=== PATIENT | male | born 2000 | race Caucasian/White ===

== ENCOUNTER 2024-08-08 10:27 | Inpatient (IN) ==
--- NOTE | 2024-08-08 10:51 | Emergency Department Note ---
Impression & Plan Suicidal thoughts Handoff ED Provider Note HPI: History obtained from patient. The patient is a 23-year-old gentleman with history of bipolar disorder, currently not taking any medications, who presents the emergency department with a chief complaint of polysubstance abuse, alcohol intoxication. Patient reportedly was making some vague suicidal threats over the phone to his sister who contacted crisis and the patient was brought into the ED via police. On my assessment here to the ED the patient is alert, he appears intoxicated but otherwise he is cooperative. Patient states he is "unstable" but denies any active plan to kill himself. Patient response to my questions appropriately and does not appear to be actively responding to any internal stimuli on my initial evaluation. He denies any hallucinations. ROS: - Per HPI Differential Diagnosis: Bipolar disorder, polysubstance abuse, alcohol intoxication, depression, suicidal thoughts, amongst other potential pathologies. *Outpatient medications and allergy history reviewed. PE: General: Alert, disheveled appearing, no acute distress HEENT: Normocephalic, trachea midline Eyes: Extraocular eye movement is intact, no scleral erythema Pulmonary: Clear to auscultation bilaterally, no wheezing Cardio: Regular rate and rhythm GI: Abdomen is soft to palpation : No suprapubic tenderness MSK: No evidence of trauma or malformation of the extremities, no edema Skin: Superficial laceration to the thumb, no active bleeding Neuro: Alert, no focal deficits Psychiatric: Cooperative Medical Decision Making: Lab work was obtained, patient was held here in the ED for observation. Lab work shows no leukocytosis, hemoglobin is normal, platelet count is normal, CMP does not show any evidence of any critical findings. Alcohol level did return markedly elevated at 353. Urine drug screen is otherwise negative. COVID screening test is negative. On my reassessment at 6 PM, the patient appears more clinically sober, it will be several hours before he is medically cleared given his elevated alcohol level. He is agreeable for 201 admission for polysubstance abuse with underlying mental health disorder and thoughts of self-harm although he denies an active plan to kill himself. Patient was signed out to my colleague, Dr. Molina, pending reevaluation for sobriety and ultimate disposition. I anticipate voluntary admission under 201, there are no clear grounds for 302 at this point. Patient again stated his preference for voluntary admission on my reevaluation, he does not appear to be going through active alcohol withdrawal but states he does drink daily therefore he will be maintained on a alcohol withdrawal precautions. Patient sinus my colleague, Dr. Molina, in stable condition pending reevaluation and ultimate disposition. Consultants/Discussions held with other healthcare providers: -Case management, Belia Red Disposition discussion held by myself with: -Patient Diagnosis: 1. Alcohol intoxication, acute 2. Bipolar disorder, nonmedicated 3. Suicidal thoughts/threats Disposition: Handoff Joss Knutson DO Emergency Medicine Past Med/Surg History Problem List (Updated 08/08/24 @ 18:07 by Joss Knutson DO) Suicidal thoughts (Acute) Cyst of brain Abdominal pain (Acute) Constipation (Acute) Dehydration (Acute) Nausea & vomiting (Acute) Medical History Cyst of brain Social History Smoking Status: Current every day smoker Tobacco Type: Cigarettes Preferred Language: Setswana Feels Safe at Home: Yes Allergies Allergies Allergy/AdvReac Type Severity Reaction Status Date / Time oak Allergy Severe Hives Unverified 10/07/22 19:16 Home Meds Home Medications Medication Instructions Recorded Confirmed No Known Home Medications 11/02/19 08/08/24 Results & Data (ED) Vital Signs Vital Signs - 24 hr 08/08/24 10:40 08/08/24 10:40 08/08/24 14:55 Temperature 36.8 C 36.8 C 36.2 C L Temperature Source Oral Oral Oral Pulse Rate 72 Pulse Rate [Left Finger] 72 89 Pulse Rhythm Regular Pulse Rhythm [Left Finger] Regular Regular Pulse Strength Normal Pulse Strength [Left Finger] Normal Normal Respiratory Rate 20 20 18 Respiratory Effort / Characteristics Non-Labored Spontaneous Non-Labored Spontaneous Non-Labored Spontaneous Respiratory Depth Normal Normal Normal Respiratory Pattern Regular Regular Regular Blood Pressure 151/91 H Blood Pressure [Left Arm] 151/91 H 112/62 Blood Pressure Mean 111 Blood Pressure Mean [Left Arm] 111 78 Blood Pressure Position Lying Blood Pressure Position [Left Arm] Lying Lying Pulse Oximetry 98 98 96 Oxygen Delivery Method Room Air Room Air Room Air Sepsis Recent Fever Within 48 Hours No Sepsis New/Unexplained Change in Mental Status No Sepsis Action Taken by Nursing No Action Required Laboratory Data 08/08/24 10:32 08/08/24 10:32 Lab Results 08/08/24 08/08/24 Range/Units 10:32 10:37 WBC 7.57 (4.8-10.8) K/ul RBC 5.42 (4.70-6.10) M/uL Hgb 17.6 (14.0-18.0) g/dl Hct 49.6 (42.0-52.0) % MCV 91.5 (80.0-100.0) fL MCH 32.5 (25.0-34.0) pg MCHC 35.5 (32.0-36.0) g/dL RDW Std Deviation 39.4 (36.4-46.3) fL RDW Coeff of Kevin 11.7 (11.5-14.5) % Plt Count 193 (130-400) K/uL MPV 8.8 L (9.4-12.4) fL Immature Gran % (Auto) 0.3 % Neut % (Auto) 59.8 % Lymph % (Auto) 28.8 % Coffey % (Auto) 8.5 % Eos % (Auto) 1.5 % Baso % (Auto) 1.1 % Neut # (Auto) 4.54 (1.40-6.50) K/uL Lymph # (Auto) 2.18 (1.20-3.40) K/uL Coffey # (Auto) 0.64 H (0.11-0.59) K/uL Eos # (Auto) 0.11 (0.00-0.50) K/uL Baso # (Auto) 0.08 (0.00-0.20) K/uL Immature Gran # (Auto) 0.02 (0.01-0.20) K/uL Sodium 141 (136-145) mmol/L Potassium 3.8 (3.5-5.1) mmol/L Chloride 102 (98-107) mmol/L Carbon Dioxide 24 (21-32) mmol/L Anion Gap 15 H (3-11) BUN 10 (6-23) mg/dl Creatinine 1.01 (0.6-1.4) mg/dl Est Cr Clr Drug Dosing 122.2 ml/min eGFR 107.84 BUN/Creatinine Ratio 9.9 L (10-20) Glucose 97 (70-99(Fasting)) mg/dl Calcium 9.7 (8.6-10.3) mg/dl Total Bilirubin 0.6 (0.2-1.0) mg/dl AST 44 H (13-39) U/L ALT 32 (7-52) U/L Alkaline Phosphatase 64 (34-104) U/L Total Protein 7.9 (6.0-8.3) gm/dl Albumin 5.3 H (3.4-5.0) gm/dl Globulin 2.6 (2.5-4.0) gm/dl Albumin/Globulin Ratio 2.0 (0.9-2) TSH 3.849 (0.300-4.500) uIu/ml Urine Color Yellow Urine Appearance Clear (Clear) Urine pH 5.5 (4.5-7.5) Ur Specific [place] 1.005 (1.000-1.030) Urine Protein Negative (Negative) Urine Glucose (UA) Negative (Negative) Urine Ketones Negative (Negative) Urine Blood Negative (Negative) Urine Nitrite Negative (Negative) Urine Bilirubin Negative (Negative) Urine Urobilinogen Negative (Negative) Ur Leukocyte Esterase Negative (Negative) Salicylates < 3.0 L (3.0-30) mg/dl Urine Opiates Screen Neg (Neg) Ur Methadone, Qual Neg (Neg) Urine Fentanyl Screen Neg (Neg) Acetaminophen < 3 L (10-30) ug/ml Urine Barbiturates Neg (Neg) Ur Phencyclidine (PCP) Neg (Neg) U Amphetamin/Meth Scrn Neg (Neg) MDMA (Ecstasy) Screen Neg (Neg) U Benzodiazepines Scrn Neg (Neg) Ur Cocaine Metabolite Neg (Neg) U Marijuana (THC) Screen Neg (Neg) Ethyl Alcohol mg/dL 353.2 H (<10.0) mg/dl SARS-CoV-2, RNA, NAAT NEGATIVE (NEGATIVE) Administered Medications Nicotine (Nicotine 21 Mg/24 Hr Tdsy) 1 patch TD QAM PANKAJ Stop: 09/07/24 11:14 Last Admin: 08/08/24 11:18 Dose: 1 patch Documented By: RAINA Discharge Plan Visit Data Chief Complaint: Mental Health Evaluation Stated Complaint: [facility] ED Provider: Joss Knutson Discharge Problem: Suicidal thoughts Forms Stand Alone Forms: My [facility], Suicide Prevention Resources Prescriptions Prescriptions: No Action No Known Home Medications Referrals Referrals: PCP,NO [Primary Care Provider] -
[2024-08-08 11:06] LABS: Appearance Urine Clear (Clear); Bilirubin Urine Negative (Negative); Blood Urine Negative (Negative); Color Urine Yellow; Glucose Urine UA Negative (Negative); Ketones Urine Negative (Negative); Leukocyte Esterase Urine Negative (Negative); Nitrite Urine Negative (Negative); Protein Urine Negative (Negative); Specific Gravity Urine 1.005 (1.000-1.030); Urobilinogen Urine Negative (Negative); pH Urine 5.5 (4.5-7.5)
[2024-08-08 11:10] LABS: Basophils # (auto) 0.08 K/uL (0.00-0.20); Basophils % (auto) 1.1 %; Eosinophils # (auto) 0.11 K/uL (0.00-0.50); Eosinophils % (auto) 1.5 %; Hematocrit (blood only) 49.6 % (42.0-52.0); Hemoglobin 17.6 g/dl (14.0-18.0); Immature Granulocytes # (auto) 0.02 K/uL (0.01-0.20); Immature Granulocytes % (auto) 0.3 %; Lymphocytes # (auto) 2.18 K/uL (1.20-3.40); Lymphocytes % (auto) 28.8 %; Mean Corpuscular Hemoglobin 32.5 pg (25.0-34.0); Mean Corpuscular Hgb Conc 35.5 g/dL (32.0-36.0); Mean Corpuscular Volume 91.5 fL (80.0-100.0); Mean Platelet Volume 8.8 fL (9.4-12.4); Monocytes # (auto) 0.64 K/uL (0.11-0.59); Monocytes % (auto) 8.5 %; Neutrophils # (auto) 4.54 K/uL (1.40-6.50); Neutrophils % (auto) 59.8 %; Platelet Count 193 K/uL (130-400); RDW Coefficient of Variation 11.7 % (11.5-14.5); RDW Standard Deviation 39.4 fL (36.4-46.3); Red Blood Count 5.42 M/uL (4.70-6.10); White Blood Count 7.57 K/ul (4.8-10.8)
[2024-08-08] MEDS: NICOTINE 21 MG/24 HR TDSY TD SCH (11:18)
[2024-08-08 11:22] LABS: Albumin Level 5.3 gm/dl (3.4-5.0); BUN Creatinine Ratio 9.9 (10-20); Bilirubin,Total 0.6 mg/dl (0.2-1.0); Calcium 9.7 mg/dl (8.6-10.3); Creatinine Clr Calc Pharmacy 122.2 ml/min; Globulin 2.6 gm/dl (2.5-4.0); Potassium 3.8 mmol/L (3.5-5.1); Total Protein 7.9 gm/dl (6.0-8.3)
[2024-08-08 11:26] LABS: Acetaminophen < 3 ug/ml (10-30); Salicylate < 3.0 mg/dl (3.0-30)
[2024-08-08 11:36] LABS: Thyroid Stimulating Hormone 3.849 uIu/ml (0.300-4.500)
[2024-08-08 11:55] LABS: Amphetamines+Metham, Urine Neg (Neg); Barbiturates, Urine Neg (Neg); Benzodiazepine, Urine Neg (Neg); Cocaine, Urine Neg (Neg); Fentanyl, Urine Neg (Neg); MDMA (Ecstacy), Urine Neg (Neg); Marijuana, Urine Neg (Neg); Methadone, Urine Neg (Neg); Opiate, Urine Neg (Neg); Phencyclidine, Urine Neg (Neg)
--- NOTE | 2024-08-08 19:10 | Emergency Department Note ---
ED Visit Note I received this patient at change of shift signout from Dr. Knutson. Please see his note for patient initial history and physical exam. The patient is a 23-year-old male who presented to the emergency department for an evaluation of mental health issues. The patient was felt to be a good candidate for inpatient management but he cannot be completely medically cleared until his alcohol level has improved and he is no longer clinically intoxicated. The patient was evaluated by the mental health case operator. The patient was reevaluated and started to have an increasing alcohol withdrawal score. He did require Ativan. At this time I do not feel the patient is going to be a good candidate for inpatient psychiatric treatment and would likely be a better candidate for inpatient alcohol withdrawal treatment. I will discuss the case with the [facility] hospitalist. .
[2024-08-08] MEDS: LORazepam 1 MG TAB PO STA (19:51)
[2024-08-08] MEDS ORDERED: ACETAMINOPHEN 500 MG TAB PO PRN (21:07)
[2024-08-08] MEDS ORDERED: Ativan IV Alcohol Withdrawal--Active Protocol IV PRN (21:07)
[2024-08-08] MEDS ORDERED: LORazepam 2 MG/1 ML VIAL IV PRN ×3 (21:07)
[2024-08-08] MEDS ORDERED: MAGNESIUM HYDROXIDE SUSP 30 ML UDC PO PRN (21:07)
[2024-08-08] MEDS ORDERED: ONDANSETRON INJ 2 MG/ML 2 ML VIAL IV PRN (21:07)
[2024-08-08] MEDS ORDERED: POLYETHYLENE (MIRALAX) 17 GM PACK PO PRN (21:07)
[2024-08-08] MEDS ORDERED: ALUMINUM/MAGNESIUM SUSP 30 ML UDC PO PRN (21:07)
[2024-08-08] MEDS ORDERED: MELATONIN 3 MG TAB PO PRN (21:07)
--- NOTE | 2024-08-08 21:37 | History & Physical Report ---
Date of Service August 08, 2024 Assessment & Plan (1) Alcohol intoxication: (2) Alcohol use disorder: (3) Suicidal thoughts: Plan #EtOH intoxication/EtOH use disorder EtOH use disorder appears to be severe AWSS protocol Thiamine, folate supplementation LR 2L @ 125cc/hr Will need discussion surrounding rehab vs harm reduction strategies prior to discharge #Suicidal Ideation Does not appear to have a plan Does seem to have a depressive pattern exacerbated by illness of his grandmother He does live locally in [place] States he has his mother as a form of support Suicide precautions Consult psychiatry, patient informed of consultation ANGELESI: Regular Code status: full DVT prophylaxis: low risk Isolation: none Disposition: PCU/tele Admission and Anticipated Discharge Date Admission Date: August 08, 2024 History of Present Illness Primary Care Provider: OSWALD PCP 23 yo male with no significant past medical history admitted for alcohol intoxication/withdrawl and suicidal ideation. He has been consistently drinking 10-14 beers daily for the last 3 years. Over the last 24 hours he has been drinking constantly. He has attempted to stop drinking in the past up to 5 days. States he is tremulous, sweaty when he tries to stop. He denies history of withdraw seizure. Reports that he is under a great deal of stress lately due to his grandmother being very ill. He has support in the form of his mother locally. He has not been in any treatment for EtOH in the past. He reports a remote history of institutionalization for mental health in the past. He denies SI/HI at the time of admission. States that he was not drinking to try to end his life, but wishes his life was over. He is a tobacco user ED Course: Labs remarkable for EtOH 353.2 at time of admission, otherwise unremarkable Started to withdraw per scoring prior to admission and was given 1x 1mg Ativan PO Nicotine patch was applied Allergies Allergy/AdvReac Type Severity Reaction Status Date / Time oak Allergy Severe Hives Unverified 10/07/22 19:16 Home Medications Medication Instructions Recorded Confirmed Type No Known Home Medications 11/02/19 08/08/24 History Past Med/Surg History Problem List (Updated 08/08/24 @ 21:51 by Ervin Esquivel DO) Alcohol use disorder Alcohol intoxication Suicidal thoughts (Acute) Cyst of brain Abdominal pain (Acute) Constipation (Acute) Dehydration (Acute) Nausea & vomiting (Acute) Medical History Cyst of brain Social History Smoking Status: Current every day smoker Tobacco Type: Cigarettes Do You Dip or Chew Tobacco: Yes; Hx Alcohol Use: Yes Alcohol type: beer Hx Substance Use: No Preferred Language: Burmese Communication Ability: Effective Mixer Machine Feeder Required: No Beliefs That Will Affect Care: None Current Living Situation: Alone Feels Safe at Home: Yes Safety Concerns: Feels Safe At This Time Assistive Devices: Glasses Review of Systems Review of Systems: reviewed, per HPI Physical Exam Physical Exam: Constitutional: well-appearing, no acute distress HEENT: NCAT, no conjunctival injection CV: extremities well-perfused, no LE edema Resp: no increased work of breathing GI: nondistended MSK: no gross deformities appreciated Skin: warm, dry, no rash appreciated Neuro: alert, oriented, no focal neurologic deficit appreciated Psych: pleasant, cooperative, motivated Results & Data Results & Data Vital Signs (Past 12 Hours) Vital Signs Temp Pulse Pulse Resp BP BP Pulse Ox 08/08/24 21:10 83 20 95 08/08/24 21:00 71 18 128/79 95 08/08/24 20:30 96 H 20 126/81 95 08/08/24 20:03 149/78 H 08/08/24 19:54 91 H 08/08/24 19:42 115 H 20 147/85 H 98 08/08/24 19:30 125/87 08/08/24 19:30 125/87 08/08/24 19:30 125/87 08/08/24 19:30 125/87 08/08/24 19:13 114 H 20 146/75 H 97 08/08/24 18:03 36.9 C 101 H 20 128/69 95 08/08/24 14:55 36.2 C L 89 18 112/62 96 08/08/24 10:40 36.8 C 72 20 151/91 H 98 08/08/24 10:40 36.8 C 72 20 151/91 H 98 O2 Del Method 08/08/24 21:10 Room Air 08/08/24 21:00 Room Air 08/08/24 20:30 Room Air 08/08/24 20:03 08/08/24 19:54 03/12/25 19:42 Room Air 08/08/24 19:30 08/08/24 19:30 08/08/24 19:30 08/08/24 19:30 08/08/24 19:13 Room Air 08/08/24 18:03 Room Air 08/08/24 14:55 Room Air 08/08/24 10:40 Room Air 08/08/24 10:40 Room Air Supervising Physician Co-Signing Physician Notes Attending addendum: I have physically seen this patient, have supervised the medical residents activities, and agree with the H&P unless as otherwise noted. Assessment and Plan: The patient is a 23-year-old male with past medical history including alcohol intoxication/withdrawal, and suicidal ideation. He has a history of drinking 10-14 beers daily for the past 3 years, and presents to the emergency department with increased attempts trying to stop drinking in the past 5 days, but is feeling tremulous, sweaty, and is concerned regarding withdrawal seizures. He reports that he is having significant more stress lately and his grandmother being very ill. He presently denies suicidal or homicidal ideation at the time of admission, and although not actively trying to interact in his life, wishes his life was over. He is referred to the [facility] service for further evaluation and treatment. Alcohol level is 353.2 #Alcohol intoxication/alcohol use disorder- Admit to monitored bed AWSS protocol with IV Ativan Thiamine 100 mg IV daily Folic acid 1 mg IV daily Lactated Ringer's at 125 mL/h x 2 L Zofran 4 mg IV every 6 hours as needed Melatonin 6 mg at bedtime as needed Tylenol 1 g p.o. every 8 hours as needed mild pain or fever Suicidal ideation- Suicide precautions History of depression aggravated by significant illness of his grandmother Consult psychiatry Tobacco use disorder- NicoDerm patch as noted Resident Activity Tracking Resident Involvement: Resident Care Provided Care Provided: Adult Hospital Medicine
[2024-08-08] MEDS: THIAMINE HCL 200 MG in SODIUM CHLORIDE 0.9% 50 ML IV STA (21:41)
[2024-08-08] MEDS: LACTATED RINGER'S 1,000 ML IV SCH (21:41)
[2024-08-08 23:12] LABS: Albumin Globulin Ratio 2.1 (0.9-2); Albumin Level 4.5 gm/dl (3.4-5.0); BUN Creatinine Ratio 14.9 (10-20); Bilirubin,Total 0.6 mg/dl (0.2-1.0); Calcium 9.1 mg/dl (8.6-10.3); Creatinine Clr Calc Pharmacy 137.9 ml/min; Globulin 2.1 gm/dl (2.5-4.0); Potassium 3.9 mmol/L (3.5-5.1); Total Protein 6.6 gm/dl (6.0-8.3)
--- NOTE | 2024-08-09 03:50 | Billing Data ---
Date of Service August 09, 2024 Coding Level of Care Code 23035 INT INP/OBS CARE
[2024-08-09 07:18] VITALS: TEMP 98.6
[2024-08-09] MEDS: MULTIVITAMIN TAB PO SCH (07:24)
[2024-08-09] MEDS: THIAMINE HCL 100 MG TAB PO SCH (07:24)
[2024-08-09] MEDS: FOLIC ACID 1 MG in SYRINGE 9.8 ML IV SCH (07:24)
[2024-08-09 11:07] VITALS: BP 127/84; PULSE 55; RESP 21; O2SAT 96
--- NOTE | 2024-08-09 12:32 | Discharge Summary ---
Discharge Summary Date of Service August 09, 2024 Principal Dx & Hospital Course #1 = Principal Diagnosis (1) Alcohol intoxication: Present on admission. Now resolved. (2) Alcohol use disorder: Further alcohol intake is highly discouraged (3) Suicidal thoughts: Resolved. He has been seen by behavioral health who has determined that the patient is safe for discharge and can follow-up with psychiatry on an outpatient basis Plan Home today, August 09 Admission HPI Per Admitting Provider 23 yo male with no significant past medical history admitted for alcohol intoxication/withdrawl and suicidal ideation. He has been consistently drinking 10-14 beers daily for the last 3 years. Over the last 24 hours he has been drinking constantly. He has attempted to stop drinking in the past up to 5 days. States he is tremulous, sweaty when he tries to stop. He denies history of withd raw seizure. Reports that he is under a great deal of stress lately due to his grandmother being very ill. He has support in the form of his mother locally. He has not been in any treatment for EtOH in the past. He reports a remote history of institutionalization for mental health in the past. He denies SI/HI at the time of admission. States that he was not drinking to try to end his life, but wishes his life was over. He is a tobacco user ED Course: Labs remarkable for EtOH 353.2 at time of admission, otherwise unremarkable Started to withdraw per scoring prior to admission and was given 1x 1mg Ativan PO Nicotine patch was applied Discharge Exam General-alert and oriented x3, no fever, no chills HEENT-head atraumatic and normocephalic, pupils equal and reactive to light, extraocular muscles intact Neck-no lymphadenopathy or thyromegaly, trachea midline Chest-clear to auscultation. No rales, wheezing or rhonchi Cardiac-regular rate and rhythm, normal S1 and S2 Abdomen-normal bowel sounds, no hepatosplenomegaly Extremities-no cyanosis, clubbing, or edema Neuro-cranial nerves II through XII intact, motor and sensory function within normal limits, strength symmetrical, no focal deficits Psych-normal affect, normal mood Discharge Plan Discharge Items Patient Disposition: Home - Self-Care Reason For Visit: ETOH INTOXICATION, SUICIDAL IDEATION Discharge Diagnosis: Alcohol intoxication, suicidal ideation Activity: Resume your previous activity Non-emergency contact: Primary Care Provider Call non-emergency contact if: your symptoms worsen Follow-up/Referrals: PCP,NO [Primary Care Provider] - Diet: Regular Addtl Attending Provider Instructions: Follow-up with outpatient psychiatry as directed. Cessation of alcohol intake is highly recommended Pending Studies at Discharge: No Stand-Alone Forms: My [facility] Study Course, Smoking Cessation Medications and DC Order Prescriptions: No Action No Known Home Medications Discharge Orders: Discharge Order (Routine); Ordered 08/09/24 Ordered By: Hong Moore Admission Data Admit Date/Time: 08/08/24 20:51 Attending Provider: Hong Moore Admit Provider: Ervin Esquivel Primary Care Provider: PCP,NO Other Providers: Guilherme Mathis Hospital Stay Data Consultations 08/08/24 20:04 ED Decision to Admit Stat 08/09/24 11:57 Consult Behavioral Health Liaison Routine Pending Results Patient Have Any Pending Studies at Discharge: No Discharge Instructions Given to Patient (Per Discharging Provider) Follow-up with outpatient psychiatry as directed. Cessation of alcohol intake is highly recommended Total Time Total Time Spent Total Time Spent (In Minutes): 45 minutes Coding Level of Care Code 12330 INP/OBS DISCH >30 MIN Diagnoses Alcohol intoxication F10.929 Alcohol use disorder F10.90 Suicidal thoughts R45.851
--- NOTE | 2024-08-09 13:13 | XRay Report ---
XR ribs LT min 2V w [id number] CLINICAL HISTORY: left rib pain COMPARISON: Portable chest dated 11/02/2019 FINDINGS: The PA chest is unchanged. There is no acute cardiopulmonary process identified. 5 views of the left ribs demonstrate no rib lesion. There is no fracture or destructive process. Ther e is no pleural effusion or extrapleural mass. IMPRESSION: No acute process identified. ACT 112: Negative or not required by law. Electronically signed by: Jess Landry M.D. 08/09/2024 1:12 PM
== END 2024-08-09 15:24 | disposition home or self-care (01) | DRG 897 ==
LOC: ED 10:27 → SUATTDRO 20:51 → EDINP 20:51 → 2E 21:07